=== PATIENT | female | born 2005 | race Two or more races ===

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

== ENCOUNTER 2024-01-31 02:31 | Emergency (ER) | payer MEDICAID ==
[~2024-01-31] VITALS: Ht 162.6 cm; Wt 68.1 kg
[2024-01-31 03:19] LABS: COVID19 ANTIGEN SOFIA FIA NEGATIVE (NEGATIVE); Rapid Influenza A Negative (Negative); Rapid Influenza B Negative (Negative)
[2024-01-31] MEDS: cefTRIAXone SOD 1,000 MG VL IM ONE (05:07)
[2024-01-31 05:15] VITALS: BP 106/62; PULSE 87; RESP 18; TEMP 98.9; O2SAT 99
== END 2024-01-31 05:14 | disposition home or self-care (01) ==
LOC: ER 02:31
DX: J03.90 Acute tonsillitis, unspecified (principal); F17.210 Nicotine dependence, cigarettes, uncomplicated; Z20.822 Contact with and (suspected) exposure to COVID-19
CPT/HCPCS: 36415; 87426; 87804; 96372; 99283; J0696

== ENCOUNTER 2025-11-18 02:19 | Emergency (ER) | payer MEDICAID ==
[~2025-11-18] VITALS: Ht 162.6 cm; Wt 69.2 kg
[2025-11-18 02:34] VITALS: BP 129/89; PULSE 87; RESP 16; TEMP 97.9; O2SAT 100
[2025-11-18 02:42] LABS: Hematocrit 39.1 % (36.0-46.0); Hemoglobin 13.5 g/dL (12.2-16.2); Mean Corpuscular Hemoglobin 31.6 pg (28.0-32.0); Mean Corpuscular Volume 91.7 fL (80.0-100.0); Nucleated Red Blood Cells % 0.1 %
[2025-11-18 02:51] LABS: Chloride 104 mmol/L (98-107); Potassium 3.8 mmol/L (3.5-5.1); Sodium 139 mmol/L (136-145)
[2025-11-18 02:52] LABS: Anion Gap 8 (5-15); Carbon Dioxide 27 mmol/L (20-31)
[2025-11-18 02:53] LABS: Calcium 9.9 mg/dL (8.7-10.4)
[2025-11-18 02:57] LABS: BUN/Creatinine Ratio 12.9 (10.0-20.0); Blood Urea Nitrogen 9 mg/dL (9-23); Glucose 97 mg/dL (74-106)
[2025-11-18 03:56] LABS: Urine Protein, UAD Negative (Negative)
--- NOTE | 2025-11-18 04:00 | ED.PDOC ---
History of Present Illness HPI Comments [age] presents with spouse for chief complaint of abnormal vaginal bleeding, with associated cramping abdominal pain. Patient reports on being 6x weeks and having unprovoked and sudden onset of symptoms 30x minutes prior to ED arrival. She comments on this being her 1st ([id number]), with expected due date on 07/09/26 (LMP on 09/25/25). Bleeding is stated to be heavy and dark in appearance. Denial of any vaginal pain, urinary issues, nausea, vomiting, or further acute symptoms. 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 Chief Complaint: Vaginal Bleed Time Seen by MD: 02:20 Primary Care Provider: NONE Reviewed Notes: Nurses Notes, Medications, Allergies Allergies: Coded Allergies: NO KNOWN ALLERGIES (Unverified , 04/28/23) Information Source: Patient Mode of Arrival: Ambulatory Severity: Moderate Timing: Hours Duration: Since onset Prehospital treatment: None Past Medical History PAST MEDICAL HISTORY: Anemia Surgical History: Denies all surgeries RESTAURANT SERVER History: No Pertinent RESTAURANT SERVER History Family History Family History: Unknown Social History Smoker: Cigarettes, Less Than 1 Pack/Day Alcohol: Occasionally Drugs: Denies Drug Use Lives In: Home All Other Systems: Reviewed and Negative (As per HPI) Physical Exam General Appearance: Mild Distress, Normal HEENT: Normal ENT Inspection, Pharynx Normal, TMs Normal Neck: Full Range of Motion, Non-Tender, Normal, Normal Inspection Respiratory: Chest Non-Tender, Lungs Clear, No Accessory Muscle Use, No Respiratory Distress, Normal Breath Sounds Cardiovascular: No Edema, No JVD, No Murmur, No Gallop, Normal Peripheral Pulses, Regular Rate/Rhythm Breast Exam: Deferred Gastrointestinal: No Organomegaly, Non Tender, No Pulsatile Mass, Normal Bowel Sounds, Soft Genitalia: Deferred Pelvic: Deferred Rectal: Deferred Extremities: No calf tenderness, Normal capillary refill, Normal inspection, Normal range of motion, Non-tender, No pedal edema Musculoskeletal : Apperance: Normal Neurologic: Alert, staff technologist II-XII nml as Tested, No Motor Deficits, Normal Affect, Normal Mood, No Sensory Deficits Cerebellar Function: Normal Reflexes: Normal Skin: Dry, Normal Color, Warm Lymphatic: No Adenopathy Was a procedure done? Was a procedure done?: No Differential Dx Considerations may include: ectopic , threatened , vaginitis, UTI, anemia, among others X-Ray, Labs, Meds, VS Vital Signs Date Time Temp Pulse Resp B/P (MAP) Pulse Ox O2 Delivery O2 Flow Rate FiO2 11/18/25 02:34 97.9 87 16 129/89 100 97.9 Lab Test 11/18/25 02:52 11/18/25 02:29 Range/Units Urine Color Yellow Yellow Urine Clarity Clear Clear Urine pH 6.5 5.0-9.0 Urine Specific [place] 1.027 1.001-1.035 Urine Protein Negative Negative Urine Ketones Negative Negative Urine Blood 3+ H Negative /uL Urine Nitrite Negative Negative Urine Bilirubin Negative Negative Urine Urobilinogen Normal Negative mg/dL Urine Leukocyte Esterase Negative Negative /uL Urine RBC 31 0 - 4 /hpf Urine Microscopic WBC 3 0-5 /HPF Urine Squamous Epithelial Cells Few <5 /hpf Urine Bacteria None seen None Seen /hpf Urine Mucus Few None Seen Urine Glucose Normal Normal mg/dL White Blood Count 7.9 4.4-10.8 10^3/uL Red Blood Count 4.27 4.0-5.20 10^6/uL Hemoglobin 13.5 12.2-16.2 g/dL Hematocrit 39.1 36.0-46.0 % Mean Corpuscular Volume 91.7 80.0-100.0 fL Mean Corpuscular Hemoglobin 31.6 28.0-32.0 pg Mean Corpuscular Hemoglobin Concent 34.5 32.0-36.0 g/dL Red Cell Distribution Width 12.8 11.8-14.3 % Platelet Count 308 140-450 10^3/uL Mean Platelet Volume 8.1 6.9-10.8 fL Neutrophils (%) (Auto) 54.1 37.0-80.0 % Lymphocytes (%) (Auto) 34.8 10.0-50.0 % Monocytes (%) (Auto) 8.0 0.0-12.0 % Eosinophils (%) (Auto) 2.4 0.0-7.0 % Basophils (%) (Auto) 0.7 0.0-2.0 % Neutrophils # (Auto) 4.3 1.6-8.6 10 ^3/uL Lymphocytes # (Auto) 2.7 0.4-5.4 10 ^3/uL Monocytes # (Auto) 0.6 0-1.3 10 ^3/uL Eosinophils # (Auto) 0.2 0-0.8 10 ^3/uL Basophils # (Auto) 0.1 0-0.2 10 ^3/uL Nucleated Red Blood Cells 0.1 % Sodium Level 139 136-145 mmol/L Potassium Level 3.8 3.5-5.1 mmol/L Chloride Level 104 98-107 mmol/L Carbon Dioxide Level 27 20-31 mmol/L Anion Gap 8 5-15 Blood Urea Nitrogen 9 9-23 mg/dL Creatinine 0.70 0.550-1.02 mg/dL Glomerular Filtration Rate Calc 126 >90 mL/min BUN/Creatinine Ratio 12.9 10.0-20.0 Serum Glucose 97 74-106 mg/dL Calcium Level 9.9 8.7-10.4 mg/dL Beta HCG, Quantitative 2381.9 H 1.5-4.2 mIU/mL Time of 1ST Reevaluation: 02:50 Reevaluation 1ST: Unchanged Patient Education/Counseling: Diagnosis, Treatment, Need For Follow Up Family Education/Counseling: Diagnosis, Treatment, Need For Follow Up SEPSIS Sepsis Screen Date sepsis recognized/suspect: Nov 18, 2025 Time Sepsis recognized/suspect: 2018 Recent Procedure: No On Antibiotic Therapy: No Respiratory Rate >20: No Heart Rate >90: No Temp<36 C (96.8 F) or >38.3 C: No SBP <90 or MAP <65 mmHG: No New Acute Mental Status Change: No Is the patient on CPAP, BIPAP,: No Physician Orders Ob Ultrasound Comp Less 14wks (11/18/25 02:21) Vital Signs Date Time Temp Pulse Resp B/P (MAP) Pulse Ox O2 Delivery O2 Flow Rate FiO2 11/18/25 02:34 97.9 87 16 129/89 100 97.9 Laboratory Tests Test 11/18/25 02:29 White Blood Count 7.9 10^3/uL (4.4-10.8) Departure 1 Departure Time of Disposition: 04:30 Impression: Primary Impression: Vaginal bleeding affecting early Disposition: 01 HOME / SELF CARE / HOMELESS Condition: Stable Discharged With: Self Critical Care Note Critical Care Time?: No Stability Stability form required: No Heart Score Heart Score: Heart Score Response (Comments) Value History N/A 0 EKG N/A 0 Age N/A 0 Risk Factors N/A 0 Troponin N/A 0 Total 0 I personally scribed for DAVON RADER MD ([email or web address]) on 11/18/25 at 04:00. Electronically submitted by Durga Lazo [email or web address]). DAVON RADER MD Nov 18, 2025 04:00
--- NOTE | 2025-11-18 05:04 | DVH ---
OB ULTRASOUND <14 WEEKS: HISTORY: vag bleed 6 weeks TECHNIQUE: Multiple real-time grayscale sonographic images of the pelvis with duplex Doppler color flow, spectral and M-mode analysis. FINDINGS: The uterus measures 8.3 x 5.6 x 5.3 cm. There is a gestational sac in the lower uterine segment. The cervix is not visualized. Right ovary not visualized. Left ovary measures 2.9 x 1.4 x 3.0 cm. No adnexal mass. There is an intrauterine gestation with pole identified and crown-rump length measuring 0.5 cm which corresponds to 6 weeks 1 day. No heart rate is detected. IMPRESSION: 1. Abnormal positioning of the gestational sac located in the lower uterine segment. Intrauterine gestation measuring 6 weeks 1 day without heart rate. Differential considerations include miscarriage in progress versus cervical ectopic . Very early intrauterine not excluded. C orrelation with serial beta hCG levels and follow-up pelvic ultrasound recommended.
== END 2025-11-18 06:33 | disposition left against medical advice (07) ==
LOC: ER 02:19
DX: O20.9 Hemorrhage in early pregnancy, unspecified (principal); R10.20 Pelvic and perineal pain unspecified side; O99.331 Smoking (tobacco) complicating pregnancy, first trimester; F17.210 Nicotine dependence, cigarettes, uncomplicated; Z3A.01 Less than 8 weeks gestation of pregnancy
CPT/HCPCS: 36415; 76801; 80048; 81001; 84702; 85025